=== PATIENT | male | born 1955 | race Caucasian/White ===

== ENCOUNTER → 2024-10-30 06:54 | Outpatient (REF) | payer OTHER, SELFPAY ==
[2024-10-30] MEDS: LEXISCAN 0.4 MG IV (08:50)
[2024-10-30] MEDS: FLUSH (NSS) 1 FLUSH IV (08:51)
== END ==
LOC: RCS 06:54
PROVIDERS: ATTENDING PHYSICIAN Internal Medicine Cardiovascular Disease; PRIMARYCARE PHYSICIAN Internal Medicine
DX: I44.7 Left bundle-branch block, unspecified (principal); R07.89 Other chest pain
CPT/HCPCS: 78452; 93017; A9500; J2785

== ENCOUNTER → 2024-11-05 17:35 | Outpatient (REF) | payer OTHER, SELFPAY | LOC: RCS 17:35 | PROVIDERS: ATTENDING PHYSICIAN Internal Medicine Cardiovascular Disease; PRIMARYCARE PHYSICIAN Internal Medicine | DX: I44.7 Left bundle-branch block, unspecified (principal); I11.9 Hypertensive heart disease without heart failure | CPT/HCPCS: 93306 ==